=== PATIENT | male | born 1995 | race Caucasian/White ===

== ENCOUNTER 2025-06-04 13:26 | Emergency (ER) | payer OTHER ==
[~2025-06-04] VITALS: Ht 182.9 cm; Wt 77.1 kg
[2025-06-04 13:49] VITALS: TEMP 98
[2025-06-04 13:59] LABS: PLATELET COUNT (AUTO) 266 K/uL (150-450); RED BLOOD CELL COUNT(AUTO) 4.71 MIL/uL (4.5-6.0); RED CELL DISTRIBUTION WIDTH 13.0 % (11.5-15.0); WHITE BLOOD COUNT (AUTO) 4.8 K/uL (4.3-11.0)
[2025-06-04 14:04] LABS: APPEARANCE,URINE CLEAR (CLEAR); BLOOD, URINE NEGATIVE Ery/uL (NEGATIVE); LEUKOCYTE ESTERASE ,URINE NEGATIVE (NEGATIVE); NITRITE, URINE NEGATIVE (NEGATIVE); UGLUCOSE NEGATIVE (NEGATIVE)
[2025-06-04 14:06] LABS: CALCIUM, SERUM 9.4 mg/dL (8.5-10.1); CREATININE 1.0 mg/dL (0.6-1.3); SODIUM SERUM 139 mmol/L (136-145); UREA NITROGEN, BLOOD 13 mg/dL (7-18)
[2025-06-04 14:12] LABS: ASPARTATE AMINOTRANSFERASE 18 U/L (15-37); TOTAL PROTEIN, SERUM 7.7 g/dL (6.4-8.2)
[2025-06-04 14:14] LABS: ALCOHOL, BLOOD < 3 mg/dL (0-10)
[2025-06-04 14:22] LABS: AMPHETAMINE, URINE NEGATIVE (NEGATIVE); BARBITURATE, URINE NEGATIVE (NEGATIVE); BENZODIAZEPINE, URINE NEGATIVE (NEGATIVE); COCCAINE, URINE NEGATIVE (NEGATIVE); OPIATE, URINE NEGATIVE (NEGATIVE)
[2025-06-04 14:27] LABS: CANNABINOID, URINE POSITIVE (NEGATIVE)
[2025-06-04] MEDS ORDERED: OLANZAPINE 5 MG TABLET ONE (20:02)
[2025-06-04] MEDS: OLANZAPINE ZYDIS 5 MG TAB.RAPDIS PO ONE (20:04)
[2025-06-04 22:49] VITALS: BP 121/77; O2SAT 98
== END 2025-06-05 00:50 ==
LOC: ER 13:26
DX: F41.0 Panic disorder [episodic paroxysmal anxiety] (principal); Z79.899 Other long term (current) drug therapy; Z20.822 Contact with and (suspected) exposure to COVID-19
CPT/HCPCS: 36415; 80048-TC; 80076-TC; 85025-TC; G0480